=== PATIENT | male | born 1970 | race Caucasian/White ===

== ENCOUNTER 2018-03-24 06:46 | Inpatient (IN) | payer SELFPAY ==
[~2018-03-24] VITALS: Ht 154.9 cm; Wt 67.6 kg
[~2018-03-24 06:46] MED LIST: COREG
[2018-03-24 08:19] LABS: HEMATOCRIT. 36.4 % (42.0-52.0); HEMOGLOBIN. 12.2 g/dL (14.0-18.0); MEAN CORPUSCULAR HEMOGLOBIN 33.2 pg (28.0-32.0); MEAN CORPUSCULAR VOLUME 98.6 fL (80.0-94.0); MEAN PLATELET VOLUME 8.8 fl (7.4-10.4); PLATELET 266 x1000/uL (130-400); RED BLOOD CELL COUNT 3.69 mill/uL (4.7-6.1); RED CELL DISTRIBUTION WIDTH 13.8 % (11.6-14.6)
[2018-03-24 08:26] LABS: CHLORIDE 96 mEq/L (98-107)
[2018-03-24 08:28] LABS: PARTIAL THROMBOPLASTIN TIME 25.6 sec (23.4-31.0); PROTHROMBIN TIME 10.1 sec (9.1-11.1)
[2018-03-24 09:05] LABS: PLATELET ESTIMATE NORMAL
[2018-03-24] MEDS ORDERED: CLONIDINE 0.1MG TABLET PO PRN (09:45)
[2018-03-24] MEDS ORDERED: DIPHENHYDRAMINE 50MG/ML VIAL IV PRN (09:45)
[2018-03-24] MEDS ORDERED: HYDROCODONE/ACETAMINOPHEN 5/325MG TABLET PO PRN (09:45)
[2018-03-24] MEDS ORDERED: ACETAMINOPHEN 325MG TABLET PO PRN (09:45)
[2018-03-24 11:00] VITALS: BP 137/72
[2018-03-24 12:00] VITALS: BP 143/76
[2018-03-24] MEDS ORDERED: DEXTROSE 50% WATER 50ML SYRINGE IV PRN (13:00)
[2018-03-24] MEDS: INSULIN LISPRO 100 UNITS/ML SUBCUT SCH ×2 (13:21→17:38)
[2018-03-24 16:00] VITALS: BP 142/77
[2018-03-24 16:25] VITALS: BP 142/77
[2018-03-24] MEDS ORDERED: BLOOD SUGAR DIAGNOSTIC STRIP TEST SCH (17:40)
[2018-03-24] MEDS ORDERED: AMLODIPINE 5MG TABLET PO SCH (21:00)
== END 2018-03-24 18:00 | disposition home or self-care (01) | DRG 48 ==
LOC: ER 06:46 → 7WST 09:02 → ENRESERV 10:16
PROVIDERS: ADMIT Internal Medicine; ATTEND Internal Medicine
DX: G90.8 Other disorders of autonomic nervous system (principal); E11.22 Type 2 diabetes mellitus with diabetic chronic kidney disease; I95.3 Hypotension of hemodialysis; E87.8 Other disorders of electrolyte and fluid balance, not elsewhere classified; E11.40 Type 2 diabetes mellitus with diabetic neuropathy, unspecified; E11.65 Type 2 diabetes mellitus with hyperglycemia; I12.0 Hypertensive chronic kidney disease with stage 5 chronic kidney disease or end stage renal disease; N18.6 End stage renal disease; D63.8 Anemia in other chronic diseases classified elsewhere; E78.5 Hyperlipidemia, unspecified; N25.81 Secondary hyperparathyroidism of renal origin; Z99.2 Dependence on renal dialysis; Z87.01 Personal history of pneumonia (recurrent); Z79.899 Other long term (current) drug therapy; Z86.11 Personal history of tuberculosis
CPT/HCPCS: 36415; 70450; 71045; 80053; 80061; 82962; 83036; 84443; 84484; 85025; 85610; 85730; 93005; 93306; 99285; J1815